=== PATIENT | male | born 1950 | race Caucasian/White ===

== ENCOUNTER 2017-04-27 09:07 | Inpatient (IN) | payer MEDICARE, MEDICAID ==
[~2017-04-27] VITALS: Ht 177.8 cm; Wt 108.7 kg
[~2017-04-27 09:07] MED LIST: ASPI-1265 PO; BENZ1TAB7 PO; CLOZ100T18 PO; CLOZ25TA PO; GEMF600T3 PO; LAMO200T2 PO; LORA0.5T PO; MULT-1141 PO; PHEN100C12 PO; PROP40TA72 PO; SAWP1CAP PO; VALA500T37 PO
[2017-04-27] MEDS ORDERED: normal saline 1000ML IV soln IVB ONE ×2 (09:20→10:40)
[2017-04-27 09:42] LABS: BASOPHILS % (AUTO) 0 % (0-1); EOSINOPHILS % (AUTO) 0 % (0-6); HEMATOCRIT 41.6 % (42.0-52.0); HEMOGLOBIN 13.8 g/dl (14.0-17.9); LYMPHOCYTES # (AUTO) 0.4 X10'3 (1.1-4.8); LYMPHOCYTES % (AUTO) 2.5 % (21-51); MEAN CORPUSCULAR HEMOGLOBIN 33.1 PG (27.0-31.0); MEAN CORPUSCULAR HGB CONC 33.2 % (33.0-36.5); MEAN CORPUSCULAR VOLUME 99.5 FL (78-98); MEAN PLATELET VOLUME 9.3 FL (7.4-10.4); MONOCYTES # (AUTO) 0.4 X10'3 (0-0.9); MONOCYTES % (AUTO) 2.5 % (2-12); NEUTROPHILS # (AUTO) 16.7 X10'3 (1.8-7.7); PLATELET COUNT 136 X10'3 (140-440); RED BLOOD COUNT 4.18 X10'6 (4.70-6.10); RED CELL DISTRIBUTION WIDTH 13.4 % (11.5-14.5); WHITE BLOOD COUNT 17.6 X10'3 (4.5-11.0)
[2017-04-27 09:51] LABS: INR 1.1 INR; PARTIAL THROMBOPLASTIN TIME 43 SECONDS (22-32); PROTHROMBIN TIME 11.2 SECONDS (9.0-12.0)
[2017-04-27] MEDS ORDERED: CefTRIAXone 2gm/NS 100ml IVPB 100 ML IV ONE (09:55)
[2017-04-27 09:56] LABS: ALANINE AMINOTRANSFERASE 16 U/L (12-78); ALBUMIN 3.3 G/DL (3.4-5.0); ALBUMIN/GLOBULIN RATIO 0.7 (1.1-1.5); ALKALINE PHOSPHATASE 187 IU/L (46-116); ANION GAP 13 (8-16); ASPARTATE AMINO TRANSFERASE 14 U/L (10-37); BILIRUBIN,TOTAL 0.8 MG/DL (0.1-1.0); BLOOD UREA NITROGEN 23 MG/DL (7-18); CALCIUM 9.8 MG/DL (8.5-10.1); CHLORIDE 100 MMOL/L (99-107); CREATININE 0.96 MG/DL (0.60-1.10); GLUCOSE 176 MG/DL (70-104); PLATELET ESTIMATE DECREASED; POTASSIUM 3.5 MMOL/L (3.5-5.1); SODIUM 141 MMOL/L (135-145); TOTAL CARBON DIOXIDE 28.1 MMOL/L (24-32); TOTAL CELLS COUNTED 100; TOTAL PROTEIN 8.1 G/DL (6.4-8.2); eGFR 79 ML/MIN
[2017-04-27 09:59] LABS: LACTIC SEPSIS 1.8 MMOL/L (0.4-2.0)
[2017-04-27 10:01] LABS: CLARITY,URINE CLEAR (Clear); COLOR,URINE YELLOW (Yellow); GLUCOSE, URINE NEGATIVE (Neg); KETONES,URINE TRACE mg/dl (Neg); LEUKOCYTE ESTERASE ,URINE NEGATIVE (Neg); NITRITES, URINE NEGATIVE (Neg); OCCULT BLOOD,URINE NEGATIVE (Neg); PH,URINE 5.5 (4.8-8.0); PROTEIN,URINE TRACE mg/dl (Neg)
[2017-04-27 10:02] LABS: UA COLLECTION TYPE CLN CATCH MIDSTREAM
[2017-04-27 10:04] LABS: MAGNESIUM 1.9 MG/DL (1.5-2.4)
[2017-04-27 10:05] LABS: AMMONIA < 10 UMOL/L (11-32)
[2017-04-27 10:18] LABS: MUCUS STRANDS MANY /LPF (Neg); SQUAMOUS EPITHELIAL CELL,UR MODERATE /LPF (FEW)
[2017-04-27 10:23] LABS: BACTERIA,URINE FEW /HPF (Neg); RBC,URINE 0-2 /HPF (0-2); WBC,URINE 0-4 /HPF (0-4)
[2017-04-27] MEDS: vancomycin/NS 1 GM ADD-VANTAGE 250 ML IV SCH ×2 (10:53→11:29)
[2017-04-27] MEDS ORDERED: ondansetron/PF 4mg/2ml inj IV PRN (11:35)
[2017-04-27] MEDS ORDERED: magnesium hydroxide 30ml (MOM) UD suspension PO PRN (11:35)
[2017-04-27] MEDS ORDERED: acetaminophen 325mg tablet PO PRN ×2 (11:35)
[2017-04-27] MEDS ORDERED: magnesium 2GM in 50ml NS 50 ML IV PRN (11:35)
[2017-04-27] MEDS ORDERED: potassium Cl 20 mEq SR tablet PO PRN ×2 (11:35)
[2017-04-27] MEDS ORDERED: potassium Cl 40MEQ/NS 500ml 500 ML IV PRN ×2 (11:35)
[2017-04-27] MEDS ORDERED: magnesium Cl slow-release 64mg tablet PO PRN (11:35)
[2017-04-27] MEDS ORDERED: mag hydrox/Alum hydrox/simeth 30ml oral suspension PO PRN (11:35)
[2017-04-27] MEDS ORDERED: magnesium 4gm in 100ml NS 100 ML IV PRN (11:35)
[2017-04-27] MEDS ORDERED: BENZ1TAB7 PO (11:51)
[2017-04-27] MEDS ORDERED: LEVE500T PO (11:51)
[2017-04-27] MEDS ORDERED: LACT10SO PO (11:51)
[2017-04-27] MEDS ORDERED: NAPR500T6 PO (11:51)
[2017-04-27] MEDS ORDERED: [UNRECOGNIZED DRUG - CODE] PO (11:51)
[2017-04-27] MEDS ORDERED: calcium chloride 100 MG/1 ML inj IV ONE (12:00)
[2017-04-27] MEDS ORDERED: epiNEPHrine 0.1mg/ml 10ml syringe ONE (12:00)
[2017-04-27] MEDS ORDERED: CLOZ150T3 PO (12:24)
[2017-04-27 12:32] LABS: CHOL/HDL RATIO 2.2 (0.00-4.99); CHOLESTEROL 95 MG/DL (0-200); HDL CHOLESTEROL 43 MG/DL (35-60); LDL CHOLESTEROL 34 MG/DL (50-100); TRIGLYCERIDES 85 MG/DL (20-135)
[2017-04-27] MEDS: normal saline 1000ml 1,000 ML IV SCH (12:55)
[2017-04-27 18:40] VITALS: BP 101/60
[2017-04-27] MEDS: lactulose 20gm/30ml cup PO SCH (19:33)
[2017-04-27] MEDS: lactobacillus rhamnosus 10,000 MMU CELLS/CAPSULE PO SCH (19:33)
[2017-04-27] MEDS: vancomycin inj 1,250 MG in normal saline 250ml IV soln 250 ML IV SCH (19:33)
[2017-04-27] MEDS: levetiracetam 250mg tablet PO SCH (19:33)
[2017-04-27] MEDS: lamoTRIgine 100mg tablet PO SCH (19:33)
[2017-04-27] MEDS ORDERED: temazepam 15mg capsule PO PRN (21:00)
[2017-04-27] MEDS ORDERED: CLOZAPINE PO SCH (21:00)
[2017-04-27] MEDS: CLOZAPINE 150 MG PO SCH (21:09)
[2017-04-27] MEDS: benztropine 1mg tablet PO SCH (21:09)
[2017-04-27 22:00] VITALS: BP 98/61
[2017-04-28] VITALS (16 sets, daily range): BP systolic 92–158; BP diastolic 48–82
[2017-04-28] MEDS: normal saline 1000ml 1,000 ML IV SCH ×4 (01:01→19:58)
[2017-04-28] MEDS: vancomycin inj 1,250 MG in normal saline 250ml IV soln 250 ML IV SCH ×3 (02:40→19:56)
[2017-04-28] MEDS: K and/or MAG REPLACEMENT MC SCH (08:00)
[2017-04-28] MEDS ORDERED: propranolol 40mg tablet PO SCH (08:00)
[2017-04-28 08:27] LABS: BASOPHILS % (AUTO) 0 % (0-1); EOSINOPHILS # (AUTO) 0.1 X10'3 (0-0.9); EOSINOPHILS % (AUTO) 0.4 % (0-6); HEMATOCRIT 35.2 % (42.0-52.0); HEMOGLOBIN 11.7 g/dl (14.0-17.9); LYMPHOCYTES # (AUTO) 0.7 X10'3 (1.1-4.8); LYMPHOCYTES % (AUTO) 4.2 % (21-51); MEAN CORPUSCULAR HEMOGLOBIN 33.3 PG (27.0-31.0); MEAN CORPUSCULAR HGB CONC 33.1 % (33.0-36.5); MEAN CORPUSCULAR VOLUME 100.4 FL (78-98); MEAN PLATELET VOLUME 9.5 FL (7.4-10.4); MONOCYTES # (AUTO) 0.8 X10'3 (0-0.9); MONOCYTES % (AUTO) 4.9 % (2-12); NEUTROPHILS # (AUTO) 15.2 X10'3 (1.8-7.7); NEUTROPHILS % (AUTO) 90.5 % (42-75); PLATELET COUNT 124 X10'3 (140-440); RED BLOOD COUNT 3.51 X10'6 (4.70-6.10); RED CELL DISTRIBUTION WIDTH 13.1 % (11.5-14.5); WHITE BLOOD COUNT 16.8 X10'3 (4.5-11.0)
[2017-04-28 08:40] LABS: ALANINE AMINOTRANSFERASE 9 U/L (12-78); ALBUMIN 2.2 G/DL (3.4-5.0); ALBUMIN/GLOBULIN RATIO 0.6 (1.1-1.5); ALKALINE PHOSPHATASE 135 IU/L (46-116); ANION GAP 7 (8-16); ASPARTATE AMINO TRANSFERASE 13 U/L (10-37); BILIRUBIN,TOTAL 0.4 MG/DL (0.1-1.0); BLOOD UREA NITROGEN 20 MG/DL (7-18); BUN/CREATININE RATIO 33.9 (5.4-32.0); CALCIUM 8.5 MG/DL (8.5-10.1); CHLORIDE 109 MMOL/L (99-107); CREATININE 0.59 MG/DL (0.60-1.10); GLUCOSE 112 MG/DL (70-104); POTASSIUM 3.3 MMOL/L (3.5-5.1); SODIUM 144 MMOL/L (135-145); TOTAL CARBON DIOXIDE 28.2 MMOL/L (24-32); TOTAL PROTEIN 6.1 G/DL (6.4-8.2); eGFR > 90 ML/MIN
[2017-04-28 08:57] LABS: PLATELET ESTIMATE DECREASED; TOTAL CELLS COUNTED 100
[2017-04-28] MEDS: lactulose 20gm/30ml cup PO SCH ×2 (09:24→19:57)
[2017-04-28] MEDS: lamoTRIgine 100mg tablet PO SCH ×2 (09:25→19:57)
[2017-04-28] MEDS: lactobacillus rhamnosus 10,000 MMU CELLS/CAPSULE PO SCH ×2 (09:25→19:57)
[2017-04-28] MEDS: levetiracetam 250mg tablet PO SCH ×2 (09:25→19:57)
[2017-04-28] MEDS: pantoprazole 40mg Tablet.DR PO SCH (09:25)
[2017-04-28] MEDS ORDERED: haloperidol lactate 5mg/ml inj IM PRN (14:15)
[2017-04-28] MEDS ORDERED: potassium Cl 20 mEq SR tablet PO PRN ×2 (14:15)
[2017-04-28] MEDS ORDERED: dextrose 50%-water 50ml dispensing syringe IV PRN (14:15)
[2017-04-28] MEDS ORDERED: ondansetron/PF 4mg/2ml inj IV PRN (14:15)
[2017-04-28] MEDS ORDERED: morphine sulfate 8 MG/ML SYRINGE IV PRN ×2 (14:15)
[2017-04-28] MEDS: K, MAG and/or Phos replacement - Verify level? MC SCH (14:15)
[2017-04-28] MEDS ORDERED: magnesium hydroxide 30ml (MOM) UD suspension PO PRN (14:15)
[2017-04-28] MEDS ORDERED: thiamine 100mg/ml 2ml inj. IV ONE (14:15)
[2017-04-28] MEDS ORDERED: acetaminophen 325mg tablet PO PRN ×2 (14:15)
[2017-04-28] MEDS ORDERED: DOPamine 400mg/D5W 250ml 250 ML IV ONE ×2 (14:17→17:40)
[2017-04-28] MEDS ORDERED: midazolam 2 mg/2 ml injection IV ONE (14:50)
[2017-04-28] MEDS ORDERED: midazolam 100mg in NS 100ml 100 ML IV ONE (14:51)
[2017-04-28] MEDS ORDERED: FENTANYL-0.9 % NACL/PF 100 ML IV ONE (14:52)
[2017-04-28] MEDS: midazolam 100mg in NS 100ml 100 ML IV PRN (14:55)
[2017-04-28] MEDS ORDERED: NORepinephrine 8mg/ 250ml NS 250 ML IV ONE (14:59)
[2017-04-28 15:06] LABS: ABG BASE EXCESS -2.9 mmol/L (-2.0-3.0); ABG HCO3 23.8 mmol/L (22.0-26.0); ABG OXYGEN SATURATION 94.4 % (95-98); ABG PCO2 (T) 46.5 mmHg (35.0-48.0); ABG PO2 (T) 76.3 mmHg (83-108); FMetHb 0.3 % (0.3-1.12); FO2Hb 93.2 % (94-100); MINUTE VOLUME 10 L/min; PATIENT TEMPERATURE 35.7; PEEP 5 cm H2O; RESPIRATORY RATE 15 b/min; RESPIRATORY RATE (OBSERVED) 16 b/min; TIDAL VOLUME 500 mL; TOTAL HEMOGLOBIN 12.1 G/dl (14.0-18.0)
[2017-04-28 16:26] LABS: BASOPHILS % (AUTO) 0 % (0-1); EOSINOPHILS % (AUTO) 0 % (0-6); HEMOGLOBIN 11.8 g/dl (14.0-17.9); LYMPHOCYTES # (AUTO) 0.5 X10'3 (1.1-4.8); LYMPHOCYTES % (AUTO) 2.3 % (21-51); MEAN CORPUSCULAR HEMOGLOBIN 33.6 PG (27.0-31.0); MEAN CORPUSCULAR HGB CONC 33.7 % (33.0-36.5); MEAN CORPUSCULAR VOLUME 99.6 FL (78-98); MEAN PLATELET VOLUME 9.8 FL (7.4-10.4); MONOCYTES # (AUTO) 0.8 X10'3 (0-0.9); MONOCYTES % (AUTO) 3.9 % (2-12); NEUTROPHILS # (AUTO) 18.7 X10'3 (1.8-7.7); NEUTROPHILS % (AUTO) 93.8 % (42-75); PLATELET COUNT 151 X10'3 (140-440); RED BLOOD COUNT 3.51 X10'6 (4.70-6.10); RED CELL DISTRIBUTION WIDTH 13.4 % (11.5-14.5)
[2017-04-28 16:35] LABS: INR 1.1 INR; PROTHROMBIN TIME 11.6 SECONDS (9.0-12.0)
[2017-04-28 16:41] LABS: ALANINE AMINOTRANSFERASE 25 U/L (12-78); ALBUMIN 2.2 G/DL (3.4-5.0); ALBUMIN/GLOBULIN RATIO 0.5 (1.1-1.5); ALKALINE PHOSPHATASE 177 IU/L (46-116); ANION GAP 9 (8-16); ASPARTATE AMINO TRANSFERASE 39 U/L (10-37); BILIRUBIN,TOTAL 0.7 MG/DL (0.1-1.0); BLOOD UREA NITROGEN 22 MG/DL (7-18); BUN/CREATININE RATIO 23.9 (5.4-32.0); CALCIUM 9.4 MG/DL (8.5-10.1); CHLORIDE 108 MMOL/L (99-107); CREATININE 0.92 MG/DL (0.60-1.10); GLUCOSE 212 MG/DL (70-104); MAGNESIUM 2.1 MG/DL (1.5-2.4); PHOSPHORUS 3.7 MG/DL (2.3-4.5); POTASSIUM 3.7 MMOL/L (3.5-5.1); SODIUM 145 MMOL/L (135-145); TOTAL PROTEIN 6.3 G/DL (6.4-8.2); eGFR 83 ML/MIN
[2017-04-28] MEDS: CISatracurium besylate inj. 200 MG in dextrose 5%-water 180 ML IV PRN (17:45)
[2017-04-28] MEDS ORDERED: VANCOMYCIN LEVEL IV NR (18:30)
[2017-04-28 19:19] LABS: CKMB RELATIVE INDEX 2.1 RATIO (0-2.5); CREATINE KINASE 185 U/L (39-308); CREATINE KINASE MB 3.9 ng/ml (0.3-3.6); MYOGLOBIN 542 ng/ml (16-96); TROPONIN I < 0.04 NG/ML (0.0-0.05)
[2017-04-28 19:21] LABS: VANCOMYCIN,TROUGH 28.1 UG/ML (6.0-14.0)
[2017-04-28] MEDS: pantoprazole 40 MG vial IV SCH (19:51)
[2017-04-28] MEDS: DOPamine 400mg/D5W 250ml 250 ML IV SCH (19:53)
[2017-04-28] MEDS: NORepinephrine 8mg/ 250ml NS 250 ML IV SCH (19:53)
[2017-04-28] MEDS: benztropine 1mg tablet PO SCH (19:57)
[2017-04-28] MEDS: CLOZAPINE 150 MG PO SCH (19:58)
[2017-04-28] MEDS ORDERED: levetiracetam 100mg/ml inj IV ONE ×2 (21:46)
[2017-04-28] MEDS ORDERED: insulin R INFUSION 1 ML IV ONE (21:46)
[2017-04-28 22:20] LABS: OXYGEN SATURATION (MIXED VEN) 67.5 % (60-80); PO2 MIXED VENOUS (TEMP COR) 22.6 mmHg (35-46)
[2017-04-28] MEDS: levetiracetam inj 500 MG in normal saline 100ml IV soln 95 ML IV SCH (22:25)
[2017-04-28] MEDS: insulin regular, human 100 UNITS in normal saline 100ml IV soln 99 ML IV SCH ×2 (22:25)
[2017-04-28 22:26] LABS: ABG BASE EXCESS -3.1 mmol/L (-2.0-3.0); ABG HCO3 21.9 mmol/L (22.0-26.0); ABG OXYGEN SATURATION 92.2 % (95-98); ABG PCO2 (T) 30.4 mmHg (35.0-48.0); ABG PO2 (T) 44.8 mmHg (83-108); FCOHb 0.6 % (0.5-1.5); FMetHb 0.3 % (0.3-1.12); FO2Hb 91.4 % (94-100); MINUTE VOLUME 8 L/min; PATIENT TEMPERATURE 31.5; PEEP 5 cm H2O; RESPIRATORY RATE 15 b/min; RESPIRATORY RATE (OBSERVED) 15 b/min; TIDAL VOLUME 500 mL; TOTAL HEMOGLOBIN 11.8 G/dl (14.0-18.0)
[2017-04-28 22:56] LABS: ANION GAP 9 (8-16); BLOOD UREA NITROGEN 26 MG/DL (7-18); BUN/CREATININE RATIO 23.9 (5.4-32.0); CALCIUM 8.6 MG/DL (8.5-10.1); CHLORIDE 107 MMOL/L (99-107); CREATININE 1.09 MG/DL (0.60-1.10); GLUCOSE 257 MG/DL (70-104); POTASSIUM 3.1 MMOL/L (3.5-5.1); SODIUM 142 MMOL/L (135-145); TOTAL CARBON DIOXIDE 25.8 MMOL/L (24-32); eGFR 68 ML/MIN
[2017-04-28] MEDS ORDERED: potassium Cl 40MEQ/250ML bag 250 ML IV PRN (23:25)
[2017-04-29] VITALS (24 sets, daily range): BP systolic 80–130; BP diastolic 45–66
[2017-04-29] MEDS: insulin regular, human 100 UNITS in normal saline 100ml IV soln 99 ML IV SCH ×4 (00:21→01:29)
[2017-04-29 02:58] LABS: BASOPHILS % (AUTO) 0 % (0-1); EOSINOPHILS % (AUTO) 0 % (0-6); HEMATOCRIT 32.7 % (42.0-52.0); HEMOGLOBIN 11.1 g/dl (14.0-17.9); LYMPHOCYTES # (AUTO) 0.6 X10'3 (1.1-4.8); LYMPHOCYTES % (AUTO) 4.8 % (21-51); MEAN CORPUSCULAR HEMOGLOBIN 33.6 PG (27.0-31.0); MEAN CORPUSCULAR VOLUME 98.7 FL (78-98); MONOCYTES # (AUTO) 0.3 X10'3 (0-0.9); MONOCYTES % (AUTO) 2.6 % (2-12); NEUTROPHILS # (AUTO) 11.7 X10'3 (1.8-7.7); NEUTROPHILS % (AUTO) 92.6 % (42-75); PLATELET COUNT 130 X10'3 (140-440); RED BLOOD COUNT 3.31 X10'6 (4.70-6.10); WHITE BLOOD COUNT 12.6 X10'3 (4.5-11.0)
[2017-04-29 03:12] LABS: INR 1.1 INR; PARTIAL THROMBOPLASTIN TIME 40 SECONDS (22-32); PROTHROMBIN TIME 11.7 SECONDS (9.0-12.0)
[2017-04-29 03:21] LABS: ALANINE AMINOTRANSFERASE 22 U/L (12-78); ALBUMIN 1.9 G/DL (3.4-5.0); ALBUMIN/GLOBULIN RATIO 0.5 (1.1-1.5); ALKALINE PHOSPHATASE 134 IU/L (46-116); ANION GAP 7 (8-16); ASPARTATE AMINO TRANSFERASE 24 U/L (10-37); BILIRUBIN,TOTAL 0.5 MG/DL (0.1-1.0); BLOOD UREA NITROGEN 27 MG/DL (7-18); BUN/CREATININE RATIO 23.1 (5.4-32.0); CALCIUM 8.6 MG/DL (8.5-10.1); CHLORIDE 109 MMOL/L (99-107); CREATININE 1.17 MG/DL (0.60-1.10); GLUCOSE 154 MG/DL (70-104); MAGNESIUM 1.9 MG/DL (1.5-2.4); PHOSPHORUS 1.3 MG/DL (2.3-4.5); SODIUM 143 MMOL/L (135-145); TOTAL CARBON DIOXIDE 27.4 MMOL/L (24-32); TOTAL PROTEIN 5.7 G/DL (6.4-8.2); eGFR 63 ML/MIN
[2017-04-29 03:23] LABS: POTASSIUM 2.6 MMOL/L (3.5-5.1)
[2017-04-29] MEDS: normal saline 1000ml 1,000 ML IV SCH ×2 (03:33→16:23)
[2017-04-29] MEDS ORDERED: potassium Cl 40MEQ/250ML bag 250 ML IV ONE (03:39)
[2017-04-29] MEDS: potassium Cl 40MEQ/250ML bag 250 ML IV PRN ×2 (03:50→07:57)
[2017-04-29] MEDS: DOPamine 400mg/D5W 250ml 250 ML IV SCH ×2 (04:04→09:09)
[2017-04-29 04:06] LABS: OXYGEN SATURATION (MIXED VEN) 74.7 % (60-80); PO2 MIXED VENOUS (TEMP COR) 27.8 mmHg (35-46)
[2017-04-29 04:10] LABS: ABG BASE EXCESS -1.2 mmol/L (-2.0-3.0); ABG HCO3 24.1 mmol/L (22.0-26.0); ABG OXYGEN SATURATION 97.5 % (95-98); ABG PCO2 (T) 35.7 mmHg (35.0-48.0); ABG PH (T) 7.429 (7.350-7.450); ABG PO2 (T) 102.5 mmHg (83-108); FCOHb 0.3 % (0.5-1.5); FMetHb 0.3 % (0.3-1.12); FO2Hb 96.9 % (94-100); MINUTE VOLUME 8 L/min; PATIENT TEMPERATURE 33.1; PEEP 5 cm H2O; RESPIRATORY RATE 15 b/min; RESPIRATORY RATE (OBSERVED) 15 b/min; TIDAL VOLUME 500 mL; TOTAL HEMOGLOBIN 11.2 G/dl (14.0-18.0)
[2017-04-29] MEDS: vancomycin inj 1,250 MG in normal saline 250ml IV soln 250 ML IV SCH ×2 (04:31→10:38)
[2017-04-29] MEDS: midazolam 100mg in NS 100ml 100 ML IV PRN (05:53)
[2017-04-29] MEDS: lactulose 20gm/30ml cup PO SCH ×2 (07:26→18:55)
[2017-04-29] MEDS: K and/or MAG REPLACEMENT MC SCH (07:26)
[2017-04-29] MEDS: K, MAG and/or Phos replacement - Verify level? MC SCH (07:26)
[2017-04-29] MEDS: lactobacillus rhamnosus 10,000 MMU CELLS/CAPSULE PO SCH ×2 (07:26→18:55)
[2017-04-29] MEDS: lamoTRIgine 100mg tablet PO SCH ×2 (07:27→18:57)
[2017-04-29] MEDS: propranolol 10mg tablet PO SCH (07:27)
[2017-04-29] MEDS: pantoprazole 40mg Tablet.DR PO SCH (07:27)
[2017-04-29 07:44] LABS: CREATINE KINASE 105 U/L (39-308); CREATINE KINASE MB 5.3 ng/ml (0.3-3.6); TROPONIN I < 0.04 NG/ML (0.0-0.05)
[2017-04-29] MEDS: pantoprazole 40 MG vial IV SCH (07:51)
[2017-04-29] MEDS: CISatracurium besylate inj. 200 MG in dextrose 5%-water 180 ML IV PRN (07:52)
[2017-04-29] MEDS: FENTANYL-0.9 % NACL/PF 100 ML IV PRN (07:53)
[2017-04-29 09:03] LABS: CREATINE KINASE 97 U/L (39-308); CREATINE KINASE MB 6.1 ng/ml (0.3-3.6); TROPONIN I < 0.04 NG/ML (0.0-0.05)
[2017-04-29] MEDS: levetiracetam inj 500 MG in normal saline 100ml IV soln 95 ML IV SCH ×2 (09:39→20:17)
[2017-04-29] MEDS ORDERED: mineral oil/petrolatum ophthal oint EACHEYE PRN (10:55)
[2017-04-29] MEDS ORDERED: sodium phosphate inj. 15 MMOL in dextrose 5%-water 150 ML IV PRN (11:47)
[2017-04-29] MEDS ORDERED: sodium phosphate inj. 30 MMOL in dextrose 5%-water 250 ML IV PRN (11:47)
[2017-04-29] MEDS: CLOZAPINE 150 MG PO SCH (18:57)
[2017-04-29] MEDS: benztropine 1mg tablet PO SCH (18:57)
[2017-04-29] MEDS: VANCOMYCIN 750MG IV in NS 250 ML IV SCH (19:02)
[2017-04-29] MEDS: mineral oil/petrolatum ophthal oint EACHEYE SCH (20:17)
[2017-04-30] VITALS (24 sets, daily range): BP systolic 97–139; BP diastolic 45–65
[2017-04-30] MEDS: NORepinephrine 8mg/ 250ml NS 250 ML IV SCH (00:37)
[2017-04-30] MEDS: DOPamine 400mg/D5W 250ml 250 ML IV SCH (00:38)
[2017-04-30] MEDS: mineral oil/petrolatum ophthal oint EACHEYE SCH ×4 (02:23→20:41)
[2017-04-30] MEDS: FENTANYL-0.9 % NACL/PF 100 ML IV PRN (02:24)
[2017-04-30] MEDS: midazolam 100mg in NS 100ml 100 ML IV PRN (02:24)
[2017-04-30] MEDS: VANCOMYCIN 750MG IV in NS 250 ML IV SCH ×4 (02:37→20:45)
[2017-04-30 02:40] LABS: BASOPHILS % (AUTO) 0.2 % (0-1); EOSINOPHILS % (AUTO) 0 % (0-6); HEMATOCRIT 32.8 % (42.0-52.0); HEMOGLOBIN 10.8 g/dl (14.0-17.9); LYMPHOCYTES # (AUTO) 0.4 X10'3 (1.1-4.8); LYMPHOCYTES % (AUTO) 3.9 % (21-51); MEAN CORPUSCULAR HEMOGLOBIN 32.8 PG (27.0-31.0); MEAN CORPUSCULAR VOLUME 99.2 FL (78-98); MONOCYTES # (AUTO) 0.2 X10'3 (0-0.9); MONOCYTES % (AUTO) 2.3 % (2-12); NEUTROPHILS # (AUTO) 9.2 X10'3 (1.8-7.7); NEUTROPHILS % (AUTO) 93.6 % (42-75); PLATELET COUNT 139 X10'3 (140-440); RED BLOOD COUNT 3.31 X10'6 (4.70-6.10); RED CELL DISTRIBUTION WIDTH 13.5 % (11.5-14.5); WHITE BLOOD COUNT 9.9 X10'3 (4.5-11.0)
[2017-04-30 02:47] LABS: INR 1.1 INR; PARTIAL THROMBOPLASTIN TIME 37 SECONDS (22-32); PROTHROMBIN TIME 11.2 SECONDS (9.0-12.0)
[2017-04-30 02:52] LABS: ALANINE AMINOTRANSFERASE 20 U/L (12-78); ALBUMIN 1.7 G/DL (3.4-5.0); ALBUMIN/GLOBULIN RATIO 0.5 (1.1-1.5); ALKALINE PHOSPHATASE 122 IU/L (46-116); ANION GAP 9 (8-16); ASPARTATE AMINO TRANSFERASE 17 U/L (10-37); BILIRUBIN,TOTAL 0.4 MG/DL (0.1-1.0); BLOOD UREA NITROGEN 32 MG/DL (7-18); BUN/CREATININE RATIO 18.2 (5.4-32.0); CALCIUM 7.9 MG/DL (8.5-10.1); CHLORIDE 109 MMOL/L (99-107); CREATININE 1.76 MG/DL (0.60-1.10); GLUCOSE 96 MG/DL (70-104); MAGNESIUM 1.8 MG/DL (1.5-2.4); POTASSIUM 3.7 MMOL/L (3.5-5.1); SODIUM 141 MMOL/L (135-145); TOTAL CARBON DIOXIDE 23.4 MMOL/L (24-32); TOTAL PROTEIN 5.4 G/DL (6.4-8.2); eGFR 39 ML/MIN
[2017-04-30 03:15] LABS: ABG BASE EXCESS -4.8 mmol/L (-2.0-3.0); ABG HCO3 21.4 mmol/L (22.0-26.0); ABG OXYGEN SATURATION 91.9 % (95-98); ABG PCO2 (T) 41.1 mmHg (35.0-48.0); ABG PH (T) 7.327 (7.350-7.450); ABG PO2 (T) 59.8 mmHg (83-108); FCOHb 0.1 % (0.5-1.5); FMetHb 0.3 % (0.3-1.12); FO2Hb 91.5 % (94-100); MINUTE VOLUME 8 L/min; PATIENT TEMPERATURE 35.6; PEEP 5 cm H2O; RESPIRATORY RATE 15 b/min; RESPIRATORY RATE (OBSERVED) 15 b/min; TIDAL VOLUME 500 mL; TOTAL HEMOGLOBIN 11.1 G/dl (14.0-18.0)
[2017-04-30] MEDS ORDERED: furosemide 40mg/4ml inj IV ONE (03:45)
[2017-04-30] MEDS: insulin regular, human 100 UNITS in normal saline 100ml IV soln 99 ML IV SCH ×2 (05:32)
[2017-04-30] MEDS: normal saline 1000ml 1,000 ML IV SCH ×2 (05:51→19:33)
[2017-04-30] MEDS: propranolol 10mg tablet PO SCH (08:00)
[2017-04-30] MEDS: K, MAG and/or Phos replacement - Verify level? MC SCH (08:00)
[2017-04-30] MEDS: levetiracetam inj 500 MG in normal saline 100ml IV soln 95 ML IV SCH ×2 (08:37→20:38)
[2017-04-30] MEDS: lactobacillus rhamnosus 10,000 MMU CELLS/CAPSULE PO SCH ×2 (08:38→20:40)
[2017-04-30] MEDS: pantoprazole 40 MG vial IV SCH (08:38)
[2017-04-30] MEDS: lactulose 20gm/30ml cup PO SCH ×2 (08:38→20:00)
[2017-04-30] MEDS: lamoTRIgine 100mg tablet PO SCH ×2 (08:39→20:40)
[2017-04-30] MEDS: hydrocortisone sod succ/PF 100mg/2ml inj. IV SCH ×3 (08:39→20:38)
[2017-04-30] MEDS: CLOZAPINE 150 MG PO SCH (20:38)
[2017-04-30] MEDS: benztropine 1mg tablet PO SCH (20:39)
[2017-05-01] VITALS (23 sets, daily range): BP systolic 128–166; BP diastolic 63–80
[2017-05-01] MEDS: hydrocortisone sod succ/PF 100mg/2ml inj. IV SCH ×4 (01:25→20:59)
[2017-05-01] MEDS: mineral oil/petrolatum ophthal oint EACHEYE SCH ×4 (01:25→20:59)
[2017-05-01 03:46] LABS: ABG BASE EXCESS -4.8 mmol/L (-2.0-3.0); ABG HCO3 19.7 mmol/L (22.0-26.0); ABG OXYGEN SATURATION 93.9 % (95-98); ABG PCO2 (T) 33.2 mmHg (35.0-48.0); ABG PH (T) 7.388 (7.350-7.450); ABG PO2 (T) 69.3 mmHg (83-108); FCOHb 0.2 % (0.5-1.5); FMetHb 0.3 % (0.3-1.12); FO2Hb 93.4 % (94-100); MINUTE VOLUME 9 L/min; PATIENT TEMPERATURE 36.2; PEEP 5 cm H2O; RESPIRATORY RATE 15 b/min; RESPIRATORY RATE (OBSERVED) 16 b/min; TIDAL VOLUME 500 mL; TOTAL HEMOGLOBIN 10.8 G/dl (14.0-18.0)
[2017-05-01 05:07] LABS: BASOPHILS % (AUTO) 0 % (0-1); EOSINOPHILS # (AUTO) 0.1 X10'3 (0-0.9); EOSINOPHILS % (AUTO) 0.8 % (0-6); HEMATOCRIT 30.3 % (42.0-52.0); HEMOGLOBIN 10.2 g/dl (14.0-17.9); LYMPHOCYTES # (AUTO) 0.3 X10'3 (1.1-4.8); LYMPHOCYTES % (AUTO) 2.8 % (21-51); MEAN CORPUSCULAR HEMOGLOBIN 32.9 PG (27.0-31.0); MEAN CORPUSCULAR HGB CONC 33.7 % (33.0-36.5); MEAN CORPUSCULAR VOLUME 97.7 FL (78-98); MEAN PLATELET VOLUME 8.2 FL (7.4-10.4); MONOCYTES # (AUTO) 0.1 X10'3 (0-0.9); MONOCYTES % (AUTO) 1.2 % (2-12); NEUTROPHILS # (AUTO) 10.5 X10'3 (1.8-7.7); NEUTROPHILS % (AUTO) 95.2 % (42-75); PLATELET COUNT 149 X10'3 (140-440); RED CELL DISTRIBUTION WIDTH 13.7 % (11.5-14.5)
[2017-05-01 05:24] LABS: INR 1.1 INR; PARTIAL THROMBOPLASTIN TIME 40 SECONDS (22-32); PROTHROMBIN TIME 11.6 SECONDS (9.0-12.0)
[2017-05-01 05:28] LABS: VANCOMYCIN,TROUGH 68.5 UG/ML (6.0-14.0)
[2017-05-01] MEDS ORDERED: VANCOMYCIN LEVEL IV ONE (05:30)
[2017-05-01] MEDS: VANCOMYCIN 750MG IV in NS 250 ML IV SCH (05:33)
[2017-05-01] MEDS: K, MAG and/or Phos replacement - Verify level? MC SCH (08:00)
[2017-05-01] MEDS: propranolol 10mg tablet PO SCH ×2 (08:00→12:03)
[2017-05-01 08:06] LABS: ALANINE AMINOTRANSFERASE 18 U/L (12-78); ALBUMIN 1.6 G/DL (3.4-5.0); ALBUMIN/GLOBULIN RATIO 0.4 (1.1-1.5); ALKALINE PHOSPHATASE 113 IU/L (46-116); ANION GAP 13 (8-16); ASPARTATE AMINO TRANSFERASE 14 U/L (10-37); BILIRUBIN,TOTAL 0.4 MG/DL (0.1-1.0); BLOOD UREA NITROGEN 41 MG/DL (7-18); BUN/CREATININE RATIO 14.6 (5.4-32.0); CALCIUM 7.6 MG/DL (8.5-10.1); CHLORIDE 111 MMOL/L (99-107); CREATININE 2.81 MG/DL (0.60-1.10); GLUCOSE 165 MG/DL (70-104); MAGNESIUM 1.9 MG/DL (1.5-2.4); POTASSIUM 3.8 MMOL/L (3.5-5.1); SODIUM 144 MMOL/L (135-145); TOTAL PROTEIN 5.4 G/DL (6.4-8.2); eGFR 23 ML/MIN
[2017-05-01 08:14] LABS: CREATININE,URINE RANDOM 85.8 MG/DL; TOTAL PROTEIN,URINE RANDOM 83.4 MG/DL
[2017-05-01] MEDS: pantoprazole 40 MG vial IV SCH (09:19)
[2017-05-01] MEDS: lactulose 20gm/30ml cup PO SCH ×2 (09:20→20:59)
[2017-05-01] MEDS: lamoTRIgine 100mg tablet PO SCH ×2 (09:20→20:59)
[2017-05-01] MEDS: lactobacillus rhamnosus 10,000 MMU CELLS/CAPSULE PO SCH ×2 (09:20→20:59)
[2017-05-01] MEDS: levetiracetam inj 500 MG in normal saline 100ml IV soln 95 ML IV SCH ×2 (09:58→20:59)
[2017-05-01] MEDS: normal saline 1000ml 1,000 ML IV SCH ×2 (10:42→17:25)
[2017-05-01] MEDS: fentaNYL/PF 50MCG/1 ML 2ML syringe IV PRN ×2 (12:04→19:24)
[2017-05-01] MEDS: DOPamine 400mg/D5W 250ml 250 ML IV SCH (12:30)
[2017-05-01] MEDS: povidone-iodine 120ml topical solution TP SCH (14:30)
[2017-05-01] MEDS ORDERED: epiNEPHrine 1 MG/ML 1 ml ampule **BRONCH ONLY ONE (15:10)
[2017-05-01] MEDS ORDERED: LIDOCAINE 4% (40MG/ML) topical solution 50ml **BRONCH ONLY ONE (15:11)
[2017-05-01] MEDS ORDERED: lidocaine 2% viscous 15 ML cup ***bronch room only MM ONE (15:11)
[2017-05-01] MEDS ORDERED: phenylephrine 1% Nasal spray (extra-strength) 15 ML bottle **bronch room NS ONE (15:12)
[2017-05-01] MEDS: insulin regular, human 100 UNITS in normal saline 100ml IV soln 99 ML IV SCH ×2 (15:20)
[2017-05-01] MEDS ORDERED: MIDAZolam 5mg/ml 2ml vial ONE (15:24)
[2017-05-01] MEDS ORDERED: MIDAZolam 5mg/ml 2ml vial IV ONE (16:10)
[2017-05-01] MEDS: benztropine 1mg tablet PO SCH (20:59)
[2017-05-01] MEDS: CLOZAPINE 150 MG PO SCH (21:00)
[2017-05-01] MEDS ORDERED: midazolam 100mg in NS 100ml 100 ML IV PRN (21:28)
[2017-05-01] MEDS: FENTANYL-0.9 % NACL/PF 100 ML IV PRN (21:36)
[2017-05-02] VITALS (23 sets, daily range): BP systolic 132–185; BP diastolic 60–84
[2017-05-02] MEDS: normal saline 1000ml 1,000 ML IV SCH ×4 (00:57→20:50)
[2017-05-02] MEDS: mineral oil/petrolatum ophthal oint EACHEYE SCH ×4 (03:03→20:49)
[2017-05-02] MEDS: hydrocortisone sod succ/PF 100mg/2ml inj. IV SCH ×4 (03:03→20:49)
[2017-05-02 03:41] LABS: ABG BASE EXCESS -6.7 mmol/L (-2.0-3.0); ABG HCO3 18.3 mmol/L (22.0-26.0); ABG OXYGEN SATURATION 94.2 % (95-98); ABG PCO2 (T) 33.4 mmHg (35.0-48.0); ABG PH (T) 7.354 (7.350-7.450); ABG PO2 (T) 74.1 mmHg (83-108); FCOHb 0.3 % (0.5-1.5); FMetHb 0.3 % (0.3-1.12); FO2Hb 93.6 % (94-100); MINUTE VOLUME 9 L/min; PATIENT TEMPERATURE 36.1; PEEP 5 cm H2O; RESPIRATORY RATE 15 b/min; RESPIRATORY RATE (OBSERVED) 17 b/min; TIDAL VOLUME 500 mL; TOTAL HEMOGLOBIN 10.3 G/dl (14.0-18.0)
[2017-05-02 03:46] LABS: BASOPHILS % (AUTO) 0.3 % (0-1); EOSINOPHILS # (AUTO) 0.1 X10'3 (0-0.9); EOSINOPHILS % (AUTO) 1.2 % (0-6); HEMATOCRIT 29.2 % (42.0-52.0); HEMOGLOBIN 9.7 g/dl (14.0-17.9); LYMPHOCYTES # (AUTO) 0.4 X10'3 (1.1-4.8); LYMPHOCYTES % (AUTO) 3.4 % (21-51); MEAN CORPUSCULAR HEMOGLOBIN 32.6 PG (27.0-31.0); MEAN CORPUSCULAR HGB CONC 33.2 % (33.0-36.5); MEAN CORPUSCULAR VOLUME 98.2 FL (78-98); MEAN PLATELET VOLUME 8.7 FL (7.4-10.4); MONOCYTES # (AUTO) 0.3 X10'3 (0-0.9); MONOCYTES % (AUTO) 2.4 % (2-12); NEUTROPHILS # (AUTO) 10.3 X10'3 (1.8-7.7); NEUTROPHILS % (AUTO) 92.7 % (42-75); PLATELET COUNT 151 X10'3 (140-440); RED BLOOD COUNT 2.98 X10'6 (4.70-6.10); RED CELL DISTRIBUTION WIDTH 13.5 % (11.5-14.5); WHITE BLOOD COUNT 11.2 X10'3 (4.5-11.0)
[2017-05-02 03:57] LABS: INR 1.1 INR; PARTIAL THROMBOPLASTIN TIME 37 SECONDS (22-32)
[2017-05-02 04:12] LABS: ALANINE AMINOTRANSFERASE 19 U/L (12-78); ALBUMIN 1.6 G/DL (3.4-5.0); ALBUMIN/GLOBULIN RATIO 0.4 (1.1-1.5); ALKALINE PHOSPHATASE 106 IU/L (46-116); ANION GAP 13 (8-16); ASPARTATE AMINO TRANSFERASE 16 U/L (10-37); BILIRUBIN,TOTAL 0.4 MG/DL (0.1-1.0); BLOOD UREA NITROGEN 47 MG/DL (7-18); BUN/CREATININE RATIO 14.7 (5.4-32.0); CALCIUM 7.9 MG/DL (8.5-10.1); CHLORIDE 114 MMOL/L (99-107); GLUCOSE 118 MG/DL (70-104); PHOSPHORUS 3.6 MG/DL (2.3-4.5); POTASSIUM 3.5 MMOL/L (3.5-5.1); SODIUM 146 MMOL/L (135-145); TOTAL CARBON DIOXIDE 19.2 MMOL/L (24-32); TOTAL PROTEIN 5.3 G/DL (6.4-8.2); eGFR 20 ML/MIN
[2017-05-02 04:45] LABS: UA EOSINOPHILS NO EOS /HPF
[2017-05-02] MEDS: K, MAG and/or Phos replacement - Verify level? MC SCH (08:00)
[2017-05-02] MEDS: lactobacillus rhamnosus 10,000 MMU CELLS/CAPSULE PO SCH ×2 (08:14→20:48)
[2017-05-02] MEDS: lactulose 20gm/30ml cup PO SCH ×2 (08:14→20:49)
[2017-05-02] MEDS: propranolol 10mg tablet PO SCH (08:14)
[2017-05-02] MEDS: pantoprazole 40 MG vial IV SCH (08:15)
[2017-05-02] MEDS: levetiracetam inj 500 MG in normal saline 100ml IV soln 95 ML IV SCH ×2 (08:15→20:49)
[2017-05-02] MEDS: povidone-iodine 120ml topical solution TP SCH (08:16)
[2017-05-02] MEDS: lamoTRIgine 100mg tablet PO SCH ×2 (08:30→20:48)
[2017-05-02] MEDS ORDERED: dextrose 50%-water 50ml dispensing syringe IV PRN ×2 (11:39→11:40)
[2017-05-02] MEDS: NORepinephrine 8mg/ 250ml NS 250 ML IV SCH (17:50)
[2017-05-02] MEDS: benztropine 1mg tablet PO SCH (20:48)
[2017-05-02] MEDS: CLOZAPINE 150 MG PO SCH (20:48)
[2017-05-02] MEDS: DOPamine 400mg/D5W 250ml 250 ML IV SCH (20:51)
[2017-05-02] MEDS: FENTANYL-0.9 % NACL/PF 100 ML IV PRN (23:18)
[2017-05-03] VITALS (24 sets, daily range): BP systolic 133–163; BP diastolic 67–83
[2017-05-03] MEDS: hydrocortisone sod succ/PF 100mg/2ml inj. IV SCH ×4 (02:50→20:32)
[2017-05-03] MEDS: normal saline 1000ml 1,000 ML IV SCH ×2 (02:50→07:37)
[2017-05-03] MEDS: mineral oil/petrolatum ophthal oint EACHEYE SCH ×4 (02:51→20:31)
[2017-05-03 03:50] LABS: ABG BASE EXCESS -7.4 mmol/L (-2.0-3.0); ABG HCO3 17.2 mmol/L (22.0-26.0); ABG OXYGEN SATURATION 92.3 % (95-98); ABG PCO2 (T) 31.1 mmHg (35.0-48.0); ABG PH (T) 7.359 (7.350-7.450); FCOHb 0.3 % (0.5-1.5); FMetHb 0.3 % (0.3-1.12); FO2Hb 91.7 % (94-100); MINUTE VOLUME 10 L/min; PATIENT TEMPERATURE 36.9; PEEP 5 cm H2O; RESPIRATORY RATE (OBSERVED) 18 b/min; TOTAL HEMOGLOBIN 10.3 G/dl (14.0-18.0)
[2017-05-03 04:08] LABS: BASOPHILS % (AUTO) 0.3 % (0-1); EOSINOPHILS # (AUTO) 0.1 X10'3 (0-0.9); HEMATOCRIT 29.7 % (42.0-52.0); LYMPHOCYTES # (AUTO) 0.4 X10'3 (1.1-4.8); LYMPHOCYTES % (AUTO) 3.6 % (21-51); MEAN CORPUSCULAR HGB CONC 33.7 % (33.0-36.5); MEAN CORPUSCULAR VOLUME 98.1 FL (78-98); MEAN PLATELET VOLUME 8.6 FL (7.4-10.4); MONOCYTES # (AUTO) 0.1 X10'3 (0-0.9); MONOCYTES % (AUTO) 0.8 % (2-12); NEUTROPHILS # (AUTO) 9.9 X10'3 (1.8-7.7); NEUTROPHILS % (AUTO) 94.3 % (42-75); PLATELET COUNT 166 X10'3 (140-440); RED BLOOD COUNT 3.03 X10'6 (4.70-6.10); RED CELL DISTRIBUTION WIDTH 13.6 % (11.5-14.5); WHITE BLOOD COUNT 10.5 X10'3 (4.5-11.0)
[2017-05-03 04:20] LABS: PARTIAL THROMBOPLASTIN TIME 36 SECONDS (22-32); PROTHROMBIN TIME 10.6 SECONDS (9.0-12.0)
[2017-05-03 04:21] LABS: PHOSPHORUS 3.2 MG/DL (2.3-4.5); PREALBUMIN 13.3 MG/DL (19-36)
[2017-05-03 05:57] LABS: ALANINE AMINOTRANSFERASE 20 U/L (12-78); ALBUMIN 1.6 G/DL (3.4-5.0); ALBUMIN/GLOBULIN RATIO 0.4 (1.1-1.5); ALKALINE PHOSPHATASE 97 IU/L (46-116); ANION GAP 13 (8-16); ASPARTATE AMINO TRANSFERASE 15 U/L (10-37); BILIRUBIN,TOTAL 0.4 MG/DL (0.1-1.0); BLOOD UREA NITROGEN 60 MG/DL (7-18); BUN/CREATININE RATIO 18.5 (5.4-32.0); CALCIUM 7.9 MG/DL (8.5-10.1); CHLORIDE 114 MMOL/L (99-107); CREATININE 3.25 MG/DL (0.60-1.10); GLUCOSE 149 MG/DL (70-104); POTASSIUM 3.6 MMOL/L (3.5-5.1); SODIUM 145 MMOL/L (135-145); TOTAL CARBON DIOXIDE 17.9 MMOL/L (24-32); TOTAL PROTEIN 5.3 G/DL (6.4-8.2); eGFR 19 ML/MIN
[2017-05-03] MEDS: K, MAG and/or Phos replacement - Verify level? MC SCH (06:49)
[2017-05-03] MEDS: lactulose 20gm/30ml cup PO SCH ×2 (07:46→20:32)
[2017-05-03] MEDS: lactobacillus rhamnosus 10,000 MMU CELLS/CAPSULE PO SCH ×2 (07:46→20:32)
[2017-05-03] MEDS: levetiracetam inj 500 MG in normal saline 100ml IV soln 95 ML IV SCH ×2 (07:46→20:44)
[2017-05-03] MEDS: pantoprazole 40 MG vial IV SCH (07:46)
[2017-05-03] MEDS: lamoTRIgine 100mg tablet PO SCH ×2 (07:47→20:32)
[2017-05-03] MEDS: povidone-iodine 120ml topical solution TP SCH (07:48)
[2017-05-03] MEDS: methylnaltrexone br 12mg/0.6ml inj***SubQ only SQ SCH (10:34)
[2017-05-03] MEDS ORDERED: furosemide 10 MG/1 ML 10ml inj IV ONE ×2 (12:00→12:23)
[2017-05-03] MEDS: benztropine 1mg tablet PO SCH (20:33)
[2017-05-03] MEDS: CLOZAPINE 150 MG PO SCH (20:33)
[2017-05-04] VITALS (24 sets, daily range): BP systolic 147–182; BP diastolic 70–97
[2017-05-04] MEDS: mineral oil/petrolatum ophthal oint EACHEYE SCH ×4 (02:24→20:00)
[2017-05-04] MEDS: hydrocortisone sod succ/PF 100mg/2ml inj. IV SCH ×4 (02:24→20:17)
[2017-05-04 03:20] LABS: ABG HCO3 16.5 mmol/L (22.0-26.0); ABG OXYGEN SATURATION 93.3 % (95-98); ABG PCO2 (T) 34.2 mmHg (35.0-48.0); ABG PH (T) 7.313 (7.350-7.450); ABG PO2 (T) 83.7 mmHg (83-108); FMetHb 0.3 % (0.3-1.12); MINUTE VOLUME 10 L/min; PATIENT TEMPERATURE 39.5; PEEP 5 cm H2O; RESPIRATORY RATE (OBSERVED) 18 b/min; TOTAL HEMOGLOBIN 10.7 G/dl (14.0-18.0)
[2017-05-04 04:01] LABS: PARTIAL THROMBOPLASTIN TIME 36 SECONDS (22-32); PROTHROMBIN TIME 10.5 SECONDS (9.0-12.0)
[2017-05-04 04:13] LABS: MAGNESIUM 1.9 MG/DL (1.5-2.4); PHOSPHORUS 3.7 MG/DL (2.3-4.5); POTASSIUM 3.3 MMOL/L (3.5-5.1)
[2017-05-04] MEDS: FENTANYL-0.9 % NACL/PF 100 ML IV PRN (04:48)
[2017-05-04] MEDS: DOPamine 400mg/D5W 250ml 250 ML IV SCH (07:10)
[2017-05-04 07:11] LABS: BASOPHILS # (AUTO) 0.1 X10'3 (0-0.2); EOSINOPHILS # (AUTO) 0.1 X10'3 (0-0.9); EOSINOPHILS % (AUTO) 1.2 % (0-6); HEMATOCRIT 32.8 % (42.0-52.0); LYMPHOCYTES # (AUTO) 0.5 X10'3 (1.1-4.8); LYMPHOCYTES % (AUTO) 5.2 % (21-51); MEAN CORPUSCULAR HEMOGLOBIN 32.6 PG (27.0-31.0); MEAN CORPUSCULAR HGB CONC 33.5 % (33.0-36.5); MEAN CORPUSCULAR VOLUME 97.5 FL (78-98); MEAN PLATELET VOLUME 7.3 FL (7.4-10.4); MONOCYTES # (AUTO) 0.3 X10'3 (0-0.9); NEUTROPHILS % (AUTO) 89.6 % (42-75); PLATELET COUNT 185 X10'3 (140-440); RED BLOOD COUNT 3.36 X10'6 (4.70-6.10); RED CELL DISTRIBUTION WIDTH 13.6 % (11.5-14.5)
[2017-05-04] MEDS: K, MAG and/or Phos replacement - Verify level? MC SCH (07:18)
[2017-05-04] MEDS: levetiracetam inj 500 MG in normal saline 100ml IV soln 95 ML IV SCH ×2 (07:21→20:03)
[2017-05-04] MEDS: lactulose 20gm/30ml cup PO SCH ×2 (07:27→20:17)
[2017-05-04] MEDS: lactobacillus rhamnosus 10,000 MMU CELLS/CAPSULE PO SCH ×2 (07:28→20:18)
[2017-05-04] MEDS: propranolol 10mg tablet PO SCH (07:28)
[2017-05-04] MEDS: pantoprazole 40 MG vial IV SCH (07:28)
[2017-05-04] MEDS: lamoTRIgine 100mg tablet PO SCH ×2 (07:28→20:18)
[2017-05-04] MEDS: povidone-iodine 120ml topical solution TP SCH (07:30)
[2017-05-04 08:19] LABS: ALANINE AMINOTRANSFERASE 17 U/L (12-78); ALBUMIN 1.7 G/DL (3.4-5.0); ALBUMIN/GLOBULIN RATIO 0.4 (1.1-1.5); ALKALINE PHOSPHATASE 91 IU/L (46-116); ANION GAP 14 (8-16); ASPARTATE AMINO TRANSFERASE 13 U/L (10-37); BILIRUBIN,TOTAL 0.4 MG/DL (0.1-1.0); BLOOD UREA NITROGEN 73 MG/DL (7-18); BUN/CREATININE RATIO 20.3 (5.4-32.0); CALCIUM 8.3 MG/DL (8.5-10.1); CHLORIDE 113 MMOL/L (99-107); GLUCOSE 149 MG/DL (70-104); SODIUM 145 MMOL/L (135-145); TOTAL CARBON DIOXIDE 18.2 MMOL/L (24-32); TOTAL PROTEIN 5.6 G/DL (6.4-8.2); eGFR 17 ML/MIN
[2017-05-04] MEDS ORDERED: furosemide 10 MG/1 ML 10ml inj IV ONE (09:50)
[2017-05-04] MEDS: docusate sodium 100mg/10ml UD cup PO SCH ×2 (11:18→20:17)
[2017-05-04] MEDS ORDERED: racepinephrine 11.25mg/0.5ml nebule NEB PRN (11:25)
[2017-05-04] MEDS ORDERED: ipratropium/albuterol 3ml nebule NEB PRN (11:25)
[2017-05-04] MEDS ORDERED: erythromycin lactobionate IV 250 MG in normal saline 100ml IV soln 100 ML IV SCH (14:00)
[2017-05-04] MEDS: ipratropium/albuterol 3ml nebule NEB SCH ×2 (14:12→20:03)
[2017-05-04 14:30] LABS: ABG BASE EXCESS -8.8 mmol/L (-2.0-3.0); ABG HCO3 16.7 mmol/L (22.0-26.0); ABG OXYGEN SATURATION 93.7 % (95-98); ABG PCO2 (T) 34.7 mmHg (35.0-48.0); ABG PO2 (T) 73.2 mmHg (83-108); FCOHb 0.3 % (0.5-1.5); FLOW 4 L/min; FMetHb 0.3 % (0.3-1.12); FO2Hb 93.1 % (94-100); TOTAL HEMOGLOBIN 11.9 G/dl (14.0-18.0)
[2017-05-04] MEDS ORDERED: LORazepam 2 mg/ml vial IV ONE (14:55)
[2017-05-04] MEDS: NORepinephrine 8mg/ 250ml NS 250 ML IV SCH (16:10)
[2017-05-04] MEDS ORDERED: Dextrose 10%-water IV solution 1,000 ML IV PRN (16:23)
[2017-05-04] MEDS ORDERED: magnesium 2GM in 50ml NS 50 ML IV PRN (16:25)
[2017-05-04] MEDS ORDERED: magnesium Cl slow-release 64mg tablet PO PRN (16:25)
[2017-05-04] MEDS ORDERED: magnesium 4gm in 100ml NS 100 ML IV PRN (16:25)
[2017-05-04] MEDS ORDERED: fat emulsion IV 200 ML, MVI, adult No.4 with vit. K 10 ML, Trace element-5 inj. 1 ML in... IV SCH ×4 (18:00)
[2017-05-04 19:24] LABS: ALANINE AMINOTRANSFERASE 18 U/L (12-78); ALBUMIN 1.8 G/DL (3.4-5.0); ALBUMIN/GLOBULIN RATIO 0.4 (1.1-1.5); ALKALINE PHOSPHATASE 95 IU/L (46-116); ANION GAP 13 (8-16); ASPARTATE AMINO TRANSFERASE 14 U/L (10-37); BILIRUBIN,TOTAL 0.4 MG/DL (0.1-1.0); BLOOD UREA NITROGEN 81 MG/DL (7-18); BUN/CREATININE RATIO 21.8 (5.4-32.0); CALCIUM 8.8 MG/DL (8.5-10.1); CHLORIDE 113 MMOL/L (99-107); CREATININE 3.71 MG/DL (0.60-1.10); GLUCOSE 134 MG/DL (70-104); MAGNESIUM 2.1 MG/DL (1.5-2.4); PHOSPHORUS 3.9 MG/DL (2.3-4.5); POTASSIUM 4.1 MMOL/L (3.5-5.1); SODIUM 144 MMOL/L (135-145); TOTAL CARBON DIOXIDE 18.4 MMOL/L (24-32); TRIGLYCERIDES 108 MG/DL (20-135); eGFR 17 ML/MIN
[2017-05-04] MEDS: benztropine 1mg tablet PO SCH (20:19)
[2017-05-04] MEDS: CLOZAPINE 150 MG PO SCH (20:19)
[2017-05-05] VITALS (24 sets, daily range): BP systolic 128–176; BP diastolic 8–108
[2017-05-05] MEDS: normal saline 1000ml 1,000 ML IV SCH (00:59)
[2017-05-05] MEDS: mineral oil/petrolatum ophthal oint EACHEYE SCH ×4 (02:00→20:00)
[2017-05-05] MEDS: hydrocortisone sod succ/PF 100mg/2ml inj. IV SCH ×4 (02:48→21:29)
[2017-05-05 03:19] LABS: BASOPHILS % (AUTO) 0.1 % (0-1); EOSINOPHILS # (AUTO) 0.2 X10'3 (0-0.9); EOSINOPHILS % (AUTO) 1.7 % (0-6); HEMATOCRIT 31.9 % (42.0-52.0); HEMOGLOBIN 10.8 g/dl (14.0-17.9); LYMPHOCYTES # (AUTO) 0.4 X10'3 (1.1-4.8); LYMPHOCYTES % (AUTO) 3.4 % (21-51); MEAN CORPUSCULAR HEMOGLOBIN 32.5 PG (27.0-31.0); MEAN CORPUSCULAR HGB CONC 33.8 % (33.0-36.5); MEAN CORPUSCULAR VOLUME 96.2 FL (78-98); MEAN PLATELET VOLUME 7.7 FL (7.4-10.4); MONOCYTES # (AUTO) 0.5 X10'3 (0-0.9); MONOCYTES % (AUTO) 3.9 % (2-12); NEUTROPHILS # (AUTO) 10.6 X10'3 (1.8-7.7); NEUTROPHILS % (AUTO) 90.9 % (42-75); PLATELET COUNT 181 X10'3 (140-440); RED BLOOD COUNT 3.32 X10'6 (4.70-6.10); RED CELL DISTRIBUTION WIDTH 13.5 % (11.5-14.5); WHITE BLOOD COUNT 11.7 X10'3 (4.5-11.0)
[2017-05-05 03:31] LABS: INR 1.1 INR; PARTIAL THROMBOPLASTIN TIME 35 SECONDS (22-32)
[2017-05-05 03:44] LABS: ALANINE AMINOTRANSFERASE 14 U/L (12-78); ALBUMIN 1.8 G/DL (3.4-5.0); ALBUMIN/GLOBULIN RATIO 0.5 (1.1-1.5); ALKALINE PHOSPHATASE 90 IU/L (46-116); ANION GAP 14 (8-16); ASPARTATE AMINO TRANSFERASE 12 U/L (10-37); BILIRUBIN,TOTAL 0.5 MG/DL (0.1-1.0); BLOOD UREA NITROGEN 81 MG/DL (7-18); BUN/CREATININE RATIO 21.7 (5.4-32.0); CALCIUM 8.4 MG/DL (8.5-10.1); CHLORIDE 110 MMOL/L (99-107); CREATININE 3.74 MG/DL (0.60-1.10); GLUCOSE 160 MG/DL (70-104); PHOSPHORUS 3.4 MG/DL (2.3-4.5); POTASSIUM 3.7 MMOL/L (3.5-5.1); SODIUM 143 MMOL/L (135-145); TOTAL CARBON DIOXIDE 19.4 MMOL/L (24-32); TOTAL PROTEIN 5.8 G/DL (6.4-8.2); eGFR 16 ML/MIN
[2017-05-05] MEDS: ipratropium/albuterol 3ml nebule NEB SCH ×4 (03:51→19:55)
[2017-05-05] MEDS: K, MAG and/or Phos replacement - Verify level? MC SCH (08:00)
[2017-05-05] MEDS: povidone-iodine 120ml topical solution TP SCH (08:00)
[2017-05-05] MEDS: lactulose 20gm/30ml cup PO SCH ×2 (08:00→21:28)
[2017-05-05] MEDS: levetiracetam inj 500 MG in normal saline 100ml IV soln 95 ML IV SCH ×2 (08:37→21:28)
[2017-05-05] MEDS: docusate sodium 100mg/10ml UD cup PO SCH ×2 (08:39→08:51)
[2017-05-05] MEDS: pantoprazole 40 MG vial IV SCH (08:39)
[2017-05-05] MEDS: lactobacillus rhamnosus 10,000 MMU CELLS/CAPSULE PO SCH ×2 (08:39→21:28)
[2017-05-05] MEDS: propranolol 10mg tablet PO SCH (08:40)
[2017-05-05] MEDS: lamoTRIgine 100mg tablet PO SCH ×2 (08:40→21:29)
[2017-05-05] MEDS: methylnaltrexone br 12mg/0.6ml inj***SubQ only SQ SCH (08:40)
[2017-05-05 09:10] LABS: ABG BASE EXCESS -7.7 mmol/L (-2.0-3.0); ABG HCO3 16.7 mmol/L (22.0-26.0); ABG OXYGEN SATURATION 92.8 % (95-98); ABG PCO2 (T) 30.1 mmHg (35.0-48.0); ABG PO2 (T) 68.6 mmHg (83-108); FCOHb 0.3 % (0.5-1.5); FMetHb 0.3 % (0.3-1.12); FO2Hb 92.2 % (94-100); MINUTE VOLUME 30 L/min; PATIENT TEMPERATURE 36.7; RESPIRATORY RATE 12 b/min; RESPIRATORY RATE (OBSERVED) 27 b/min; TIDAL VOLUME 805 mL
[2017-05-05] MEDS: DOPamine 400mg/D5W 250ml 250 ML IV SCH (16:30)
[2017-05-05] MEDS: benztropine 1mg tablet PO SCH (21:28)
[2017-05-05] MEDS: CLOZAPINE 150 MG PO SCH (21:29)
[2017-05-05] MEDS ORDERED: MESSAGE TO PHARMACY PO ONE (21:55)
[2017-05-05] MEDS ORDERED: dextrose ORAL solution 15 GM/59 ML bottle PO PRN ×2 (21:55)
[2017-05-05] MEDS ORDERED: dextrose 50%-water 50ml dispensing syringe IV PRN ×2 (21:55)
[2017-05-05] MEDS ORDERED: glucagon, human recombinant 1mg kit SUBCUT PRN (21:55)
[2017-05-05] MEDS ORDERED: insulin regular, human vial - multi-dose ONE (22:30)
[2017-05-05] MEDS ORDERED: Insulin Detemir pen SQ ONE (22:31)
[2017-05-05] MEDS: insulin regular, human vial - multi-dose SQ SCH (23:03)
[2017-05-05] MEDS: Insulin Detemir pen SQ SCH (23:05)
[2017-05-06] VITALS (22 sets, daily range): BP systolic 133–165; BP diastolic 77–100
[2017-05-06] MEDS: mineral oil/petrolatum ophthal oint EACHEYE SCH ×4 (02:00→20:43)
[2017-05-06] MEDS: hydrocortisone sod succ/PF 100mg/2ml inj. IV SCH ×4 (02:31→20:42)
[2017-05-06 02:34] LABS: BASOPHILS # (AUTO) 0.1 X10'3 (0-0.2); BASOPHILS % (AUTO) 0.4 % (0-1); EOSINOPHILS # (AUTO) 0.2 X10'3 (0-0.9); EOSINOPHILS % (AUTO) 1.5 % (0-6); HEMATOCRIT 31.3 % (42.0-52.0); HEMOGLOBIN 10.4 g/dl (14.0-17.9); LYMPHOCYTES # (AUTO) 0.2 X10'3 (1.1-4.8); LYMPHOCYTES % (AUTO) 1.8 % (21-51); MEAN CORPUSCULAR HEMOGLOBIN 32.6 PG (27.0-31.0); MEAN CORPUSCULAR HGB CONC 33.2 % (33.0-36.5); MEAN CORPUSCULAR VOLUME 98.1 FL (78-98); MEAN PLATELET VOLUME 7.8 FL (7.4-10.4); MONOCYTES # (AUTO) 0.2 X10'3 (0-0.9); MONOCYTES % (AUTO) 1.3 % (2-12); PLATELET COUNT 192 X10'3 (140-440); RED BLOOD COUNT 3.19 X10'6 (4.70-6.10); RED CELL DISTRIBUTION WIDTH 13.5 % (11.5-14.5); WHITE BLOOD COUNT 13.7 X10'3 (4.5-11.0)
[2017-05-06 02:43] LABS: INR 1.1 INR; PARTIAL THROMBOPLASTIN TIME 36 SECONDS (22-32)
[2017-05-06] MEDS: fat emulsion IV 100 ML, MVI, adult No.4 with vit. K 5 ML, Trace element-5 inj. 0.5 ML i... IV SCH ×8 (02:47→14:03)
[2017-05-06] MEDS: insulin regular, human vial - multi-dose SQ SCH ×3 (02:48→20:36)
[2017-05-06 02:52] LABS: ALANINE AMINOTRANSFERASE 18 U/L (12-78); ALBUMIN 1.8 G/DL (3.4-5.0); ALBUMIN/GLOBULIN RATIO 0.5 (1.1-1.5); ALKALINE PHOSPHATASE 84 IU/L (46-116); ANION GAP 12 (8-16); ASPARTATE AMINO TRANSFERASE 15 U/L (10-37); BILIRUBIN,TOTAL 0.4 MG/DL (0.1-1.0); BLOOD UREA NITROGEN 89 MG/DL (7-18); BUN/CREATININE RATIO 25.5 (5.4-32.0); CALCIUM 8.6 MG/DL (8.5-10.1); CHLORIDE 113 MMOL/L (99-107); CREATININE 3.49 MG/DL (0.60-1.10); GLUCOSE 241 MG/DL (70-104); MAGNESIUM 2.3 MG/DL (1.5-2.4); PHOSPHORUS 4.3 MG/DL (2.3-4.5); POTASSIUM 3.8 MMOL/L (3.5-5.1); SODIUM 146 MMOL/L (135-145); TOTAL CARBON DIOXIDE 20.7 MMOL/L (24-32); TOTAL PROTEIN 5.5 G/DL (6.4-8.2); eGFR 18 ML/MIN
[2017-05-06] MEDS: ipratropium/albuterol 3ml nebule NEB SCH ×4 (03:34→20:08)
[2017-05-06] MEDS: normal saline 1000ml 1,000 ML IV SCH (07:29)
[2017-05-06] MEDS: levetiracetam inj 500 MG in normal saline 100ml IV soln 95 ML IV SCH ×2 (07:30→20:43)
[2017-05-06] MEDS: lactulose 20gm/30ml cup PO SCH ×2 (07:31→20:42)
[2017-05-06] MEDS: lactobacillus rhamnosus 10,000 MMU CELLS/CAPSULE PO SCH ×2 (07:32→20:43)
[2017-05-06] MEDS: lamoTRIgine 100mg tablet PO SCH ×2 (07:32→20:43)
[2017-05-06] MEDS: pantoprazole 40 MG vial IV SCH (07:32)
[2017-05-06] MEDS: docusate sodium 100mg/10ml UD cup PO SCH ×2 (07:32→20:42)
[2017-05-06] MEDS: propranolol 10mg tablet PO SCH (07:32)
[2017-05-06] MEDS: povidone-iodine 120ml topical solution TP SCH (07:33)
[2017-05-06] MEDS: Insulin Detemir pen SQ SCH (20:37)
[2017-05-06] MEDS: benztropine 1mg tablet PO SCH (20:42)
[2017-05-06] MEDS: heparin, porcine 5000 units/ml vial SQ SCH (20:42)
[2017-05-06] MEDS: CLOZAPINE 150 MG PO SCH (20:42)
[2017-05-07] VITALS (24 sets, daily range): BP systolic 115–163; BP diastolic 66–88
[2017-05-07] MEDS: fat emulsion IV 100 ML, MVI, adult No.4 with vit. K 5 ML, Trace element-5 inj. 0.5 ML i... IV SCH ×4 (01:29)
[2017-05-07] MEDS: hydrocortisone sod succ/PF 100mg/2ml inj. IV SCH ×4 (01:29→19:55)
[2017-05-07] MEDS: mineral oil/petrolatum ophthal oint EACHEYE SCH ×4 (01:29→19:55)
[2017-05-07] MEDS: insulin regular, human vial - multi-dose SQ SCH ×4 (01:40→20:27)
[2017-05-07] MEDS: ipratropium/albuterol 3ml nebule NEB SCH ×4 (03:02→20:49)
[2017-05-07 03:03] LABS: BASOPHILS # (AUTO) 0.1 X10'3 (0-0.2); BASOPHILS % (AUTO) 0.4 % (0-1); EOSINOPHILS # (AUTO) 0.1 X10'3 (0-0.9); EOSINOPHILS % (AUTO) 0.8 % (0-6); HEMATOCRIT 32.6 % (42.0-52.0); LYMPHOCYTES # (AUTO) 0.4 X10'3 (1.1-4.8); LYMPHOCYTES % (AUTO) 2.4 % (21-51); MEAN CORPUSCULAR HEMOGLOBIN 32.9 PG (27.0-31.0); MEAN CORPUSCULAR HGB CONC 33.8 % (33.0-36.5); MEAN CORPUSCULAR VOLUME 97.5 FL (78-98); MEAN PLATELET VOLUME 8.2 FL (7.4-10.4); MONOCYTES # (AUTO) 0.3 X10'3 (0-0.9); MONOCYTES % (AUTO) 2.1 % (2-12); NEUTROPHILS # (AUTO) 15.3 X10'3 (1.8-7.7); NEUTROPHILS % (AUTO) 94.3 % (42-75); PLATELET COUNT 203 X10'3 (140-440); RED BLOOD COUNT 3.34 X10'6 (4.70-6.10); RED CELL DISTRIBUTION WIDTH 13.7 % (11.5-14.5); WHITE BLOOD COUNT 16.2 X10'3 (4.5-11.0)
[2017-05-07 03:11] LABS: ALANINE AMINOTRANSFERASE 33 U/L (12-78); ALBUMIN 1.8 G/DL (3.4-5.0); ALBUMIN/GLOBULIN RATIO 0.5 (1.1-1.5); ALKALINE PHOSPHATASE 107 IU/L (46-116); ANION GAP 12 (8-16); ASPARTATE AMINO TRANSFERASE 38 U/L (10-37); BILIRUBIN,TOTAL 0.4 MG/DL (0.1-1.0); BLOOD UREA NITROGEN 92 MG/DL (7-18); BUN/CREATININE RATIO 27.7 (5.4-32.0); CALCIUM 8.5 MG/DL (8.5-10.1); CHLORIDE 111 MMOL/L (99-107); CREATININE 3.32 MG/DL (0.60-1.10); GLUCOSE 218 MG/DL (70-104); MAGNESIUM 2.2 MG/DL (1.5-2.4); PHOSPHORUS 4.9 MG/DL (2.3-4.5); POTASSIUM 3.8 MMOL/L (3.5-5.1); PREALBUMIN 17.6 MG/DL (19-36); SODIUM 143 MMOL/L (135-145); TOTAL CARBON DIOXIDE 20.3 MMOL/L (24-32); TOTAL PROTEIN 5.7 G/DL (6.4-8.2); TRIGLYCERIDES 94 MG/DL (20-135); eGFR 19 ML/MIN
[2017-05-07 05:26] LABS: ABG BASE EXCESS -10.5 mmol/L (-2.0-3.0); ABG HCO3 17.3 mmol/L (22.0-26.0); ABG OXYGEN SATURATION 92.5 % (95-98); ABG PCO2 (T) 45.7 mmHg (35.0-48.0); ABG PH (T) 7.195 (7.350-7.450); ABG PO2 (T) 75.5 mmHg (83-108); ALLEN'S TEST Positive; FCOHb 0.6 % (0.5-1.5); FMetHb 0.3 % (0.3-1.12); FO2Hb 91.7 % (94-100); MINUTE VOLUME 15 L/min; RESPIRATORY RATE 12 b/min; RESPIRATORY RATE (OBSERVED) 25 b/min; TIDAL VOLUME 567 mL; TOTAL HEMOGLOBIN 11.2 G/dl (14.0-18.0)
[2017-05-07] MEDS: levetiracetam inj 500 MG in normal saline 100ml IV soln 95 ML IV SCH ×2 (08:44→19:53)
[2017-05-07] MEDS: propranolol 10mg tablet PO SCH (08:45)
[2017-05-07] MEDS: heparin, porcine 5000 units/ml vial SQ SCH ×2 (08:45→19:55)
[2017-05-07] MEDS: lactulose 20gm/30ml cup PO SCH ×2 (08:45→19:53)
[2017-05-07] MEDS: lactobacillus rhamnosus 10,000 MMU CELLS/CAPSULE PO SCH ×2 (08:45→19:54)
[2017-05-07] MEDS: docusate sodium 100mg/10ml UD cup PO SCH ×2 (08:45→19:53)
[2017-05-07] MEDS: lamoTRIgine 100mg tablet PO SCH ×2 (08:45→19:54)
[2017-05-07] MEDS: pantoprazole 40 MG vial IV SCH (08:45)
[2017-05-07] MEDS: povidone-iodine 120ml topical solution TP SCH (08:46)
[2017-05-07] MEDS: methylnaltrexone br 12mg/0.6ml inj***SubQ only SQ SCH (08:46)
[2017-05-07] MEDS: benztropine 1mg tablet PO SCH (19:54)
[2017-05-07] MEDS: CLOZAPINE 150 MG PO SCH (19:56)
[2017-05-07] MEDS: Insulin Detemir pen SQ SCH (20:28)
[2017-05-08] VITALS (15 sets, daily range): BP systolic 83–148; BP diastolic 51–72
[2017-05-08] MEDS: normal saline 1000ml 1,000 ML IV SCH (00:08)
[2017-05-08] MEDS: fat emulsion IV 100 ML, MVI, adult No.4 with vit. K 5 ML, Trace element-5 inj. 0.5 ML i... IV SCH ×4 (00:09)
[2017-05-08] MEDS: mineral oil/petrolatum ophthal oint EACHEYE SCH ×2 (02:00→08:00)
[2017-05-08 02:28] LABS: BASOPHILS % (AUTO) 0.1 % (0-1); EOSINOPHILS # (AUTO) 0.2 X10'3 (0-0.9); EOSINOPHILS % (AUTO) 1.4 % (0-6); HEMATOCRIT 30.7 % (42.0-52.0); LYMPHOCYTES # (AUTO) 0.3 X10'3 (1.1-4.8); MEAN CORPUSCULAR HEMOGLOBIN 32.4 PG (27.0-31.0); MEAN CORPUSCULAR HGB CONC 32.7 % (33.0-36.5); MEAN CORPUSCULAR VOLUME 99.2 FL (78-98); MEAN PLATELET VOLUME 8.2 FL (7.4-10.4); MONOCYTES # (AUTO) 0.1 X10'3 (0-0.9); MONOCYTES % (AUTO) 0.7 % (2-12); NEUTROPHILS # (AUTO) 14.2 X10'3 (1.8-7.7); NEUTROPHILS % (AUTO) 95.8 % (42-75); PLATELET COUNT 174 X10'3 (140-440); RED BLOOD COUNT 3.09 X10'6 (4.70-6.10); RED CELL DISTRIBUTION WIDTH 13.6 % (11.5-14.5); WHITE BLOOD COUNT 14.8 X10'3 (4.5-11.0)
[2017-05-08] MEDS: hydrocortisone sod succ/PF 100mg/2ml inj. IV SCH ×2 (02:37→07:45)
[2017-05-08] MEDS: insulin regular, human vial - multi-dose SQ SCH ×2 (02:39→08:28)
[2017-05-08 02:43] LABS: ALANINE AMINOTRANSFERASE 26 U/L (12-78); ALBUMIN 1.7 G/DL (3.4-5.0); ALBUMIN/GLOBULIN RATIO 0.4 (1.1-1.5); ALKALINE PHOSPHATASE 97 IU/L (46-116); ANION GAP 8 (8-16); ASPARTATE AMINO TRANSFERASE 15 U/L (10-37); BILIRUBIN,TOTAL 0.3 MG/DL (0.1-1.0); BLOOD UREA NITROGEN 99 MG/DL (7-18); BUN/CREATININE RATIO 31.6 (5.4-32.0); CALCIUM 8.4 MG/DL (8.5-10.1); CHLORIDE 111 MMOL/L (99-107); CREATININE 3.13 MG/DL (0.60-1.10); GLUCOSE 207 MG/DL (70-104); MAGNESIUM 2.3 MG/DL (1.5-2.4); POTASSIUM 4.3 MMOL/L (3.5-5.1); SODIUM 141 MMOL/L (135-145); TOTAL CARBON DIOXIDE 22.3 MMOL/L (24-32); TOTAL PROTEIN 5.5 G/DL (6.4-8.2); eGFR 20 ML/MIN
[2017-05-08] MEDS: ipratropium/albuterol 3ml nebule NEB SCH ×2 (02:45→07:47)
[2017-05-08 04:13] LABS: PHOSPHORUS 5.8 MG/DL (2.3-4.5)
[2017-05-08] MEDS: levetiracetam inj 500 MG in normal saline 100ml IV soln 95 ML IV SCH (07:44)
[2017-05-08] MEDS: propranolol 10mg tablet PO SCH (07:45)
[2017-05-08] MEDS: docusate sodium 100mg/10ml UD cup PO SCH (07:45)
[2017-05-08] MEDS: lamoTRIgine 100mg tablet PO SCH (07:45)
[2017-05-08] MEDS: lactulose 20gm/30ml cup PO SCH (07:45)
[2017-05-08] MEDS: pantoprazole 40 MG vial IV SCH (07:45)
[2017-05-08] MEDS: lactobacillus rhamnosus 10,000 MMU CELLS/CAPSULE PO SCH (07:45)
[2017-05-08] MEDS: heparin, porcine 5000 units/ml vial SQ SCH (07:46)
[2017-05-08] MEDS: povidone-iodine 120ml topical solution TP SCH (08:32)
[2017-05-08] MEDS ORDERED: LORazepam 2 mg/ml vial IV PRN (11:40)
[2017-05-08] MEDS ORDERED: morphine 10mg/0.5ml (conc. morphine) oral syringe PO PRN (11:40)
== END 2017-05-08 14:30 | disposition expired | DRG 870 ==
LOC: ER 09:08 → ED HOLD 10:48 → ORTHO 4S 18:39 → ICU 2S 04-28 14:09
PROVIDERS: ADMIT Internal Medicine; ATTEND Internal Medicine Critical Care Medicine
PROC: 5A12012 Performance of Cardiac Output, Single, Manual (ICD-10-PCS; 2017-04-27)
PROC: 5A1955Z Respiratory Ventilation, Greater than 96 Consecutive Hours (ICD-10-PCS; principal; 2017-04-28)
PROC: 0BH17EZ Insertion of Endotracheal Airway into Trachea, Via Natural or Artificial Opening (ICD-10-PCS; 2017-04-28)
PROC: 0BJ08ZZ Inspection of Tracheobronchial Tree, Via Natural or Artificial Opening Endoscopic (ICD-10-PCS; 2017-05-01)
PROC: 5A09357 Assistance with Respiratory Ventilation, Less than 24 Consecutive Hours, Continuous Positive Airway Pressure (ICD-10-PCS; 2017-05-04)
PROC: 5A09357 Assistance with Respiratory Ventilation, Less than 24 Consecutive Hours, Continuous Positive Airway Pressure (ICD-10-PCS; 2017-05-05)
PROC: 5A09357 Assistance with Respiratory Ventilation, Less than 24 Consecutive Hours, Continuous Positive Airway Pressure (ICD-10-PCS; 2017-05-07)
DX: A41.9 Sepsis, unspecified organism (principal); I46.9 Cardiac arrest, cause unspecified; J96.00 Acute respiratory failure, unspecified whether with hypoxia or hypercapnia; N17.0 Acute kidney failure with tubular necrosis; J69.0 Pneumonitis due to inhalation of food and vomit; G93.1 Anoxic brain damage, not elsewhere classified; J90 Pleural effusion, not elsewhere classified; J43.9 Emphysema, unspecified; L03.114 Cellulitis of left upper limb; K56.7 Ileus, unspecified; D69.6 Thrombocytopenia, unspecified; B19.20 Unspecified viral hepatitis C without hepatic coma; G40.909 Epilepsy, unspecified, not intractable, without status epilepticus; E78.5 Hyperlipidemia, unspecified; F03.90 Unspecified dementia, unspecified severity, without behavioral disturbance, psychotic disturbance, mood disturbance, and anxiety; F20.9 Schizophrenia, unspecified; R29.6 Repeated falls; T17.920A Food in respiratory tract, part unspecified causing asphyxiation, initial encounter; S60.222A Contusion of left hand, initial encounter; F17.200 Nicotine dependence, unspecified, uncomplicated; F10.20 Alcohol dependence, uncomplicated; Z60.2 Problems related to living alone; Z51.5 Encounter for palliative care; Z66 Do not resuscitate; W18.39XA Other fall on same level, initial encounter; Y93.89 Activity, other specified; Y92.89 Other specified places as the place of occurrence of the external cause; Y99.8 Other external cause status; X58.XXXA Exposure to other specified factors, initial encounter; Y92.239 Unspecified place in hospital as the place of occurrence of the external cause
CPT/HCPCS: 31645; 36415; 36600; 70450; 71010; 71045; 73130; 74000; 74020; 80048; 80053; 80061; 80202; 81001; 82140; 82550; 82553; 82570; 82803; 82810; 82948; 83036; 83605; 83735; 83874; 83880; 84100; 84132; 84134; 84145; 84156; 84300; 84478; 84484; 84540; 85018; 85025; 85610; 85730; 87040; 87070; 87207; 92616; 93005; 94002; 94003; 94640; 94660; 94760; 96365; 97110; 97161; 97164; 97530; 99285; A4315; A6196; A6209; A6212; A6213; A6222; A6223; A6257; A6449; C1758; C1894; C9113; J0171; J0696; J1265; J1364; J1644; J1720; J1815; J1940; J1953; J2060; J2212; J2250; J3010; J3370; J3411; J3480; J3490; J7030; J7060